=== PATIENT | female | born 1990 ===

== ENCOUNTER 2020-03-30 06:11 | Inpatient (IN) ==
[2020-03-30] MEDS ORDERED: BETADINE SOLN ONE (06:32)
[2020-03-30] MEDS ORDERED: D5 1/2 NS 1000 ML 1,000 ML IV ONE (06:32)
[2020-03-30] MEDS ORDERED: PITOCIN ONE (06:32)
[2020-03-30] MEDS ORDERED: D5LR 1L W PITOCIN 10 UNITS/L 10 UNITS/1,000 ML BAG IV ONE (06:33)
[2020-03-30] MEDS ORDERED: D5 1/2 NS 1L W PITOCIN 20 UNITS/L 20 UNITS/1,000 ML BAG IV ONE (06:33)
[2020-03-30] MEDS: D5 1/2 NS 1000 ML 1,000 ML IV SCH ×2 (06:45→17:00)
[2020-03-30] MEDS ORDERED: D5LR 1L W PITOCIN 10 UNITS/L 10 UNITS/1,000 ML BAG IV PRN (07:00)
[2020-03-30] MEDS ORDERED: REGLAN INJ 10 MG VIAL IVP PRN (07:12)
[2020-03-30] MEDS ORDERED: PITOCIN IVP ONE (07:12)
[2020-03-30] MEDS ORDERED: PHENERGAN INJ 25 MG IM PRN ×2 (07:12→15:20)
[2020-03-30] MEDS ORDERED: STADOL INJ IVP PRN (07:14)
[2020-03-30] MEDS ORDERED: LR 1000 ML IV 1,000 ML IV ONE ×2 (07:44→11:09)
[2020-03-30] MEDS ORDERED: FENTANYL INJ 100 mcg ONE (07:44)
[2020-03-30] MEDS ORDERED: NAROPIN EPIDURAL 0.2% 100 ML ONE (07:45)
[2020-03-30] MEDS ORDERED: EPHEDRINE SULFATE INJ ONE (10:26)
[2020-03-30] MEDS ORDERED: MOTRIN TAB 800 MG PO PRN ×2 (15:20→15:42)
[2020-03-30] MEDS ORDERED: AMBIEN PO PRN (15:42)
[2020-03-30] MEDS ORDERED: DERMOPLAST PAIN RELIEF SPRAY TOP PRN (15:42)
[2020-03-30] MEDS ORDERED: MILK OF MAGNESIA PO PRN (15:42)
[2020-03-30] MEDS ORDERED: D5 1/2 NS 1000 ML 1,000 ML with PITOCIN 20 UNITS IV SCH ×2 (16:00)
[2020-03-31 06:08] LABS: HEMATOCRIT 27.2 % (36.0-47.0); HEMOGLOBIN 8.7 g/dL (12.0-16.0)
--- NOTE | 2020-03-31 08:11 | NOTE.PROOB ---
progress Note OB- Subjective Data Subjective: No complaints, decreased lochia. Tolerating regular diet. No N/V. Ambulating well. No dysuria. Objective Data Result Diagrams: 03/31/20 05:25 Objective Data: CV= RRR no MRG Lungs=CTA Bilaterally Abd=(+) BS, soft, NTND, Fundus firm/NT/ at 3 cm below umbilicus. Ext=no edema, NT, no cords Plan (1) (spontaneous vaginal delivery): Plan: stable and requesting early d/c. considering tubal in 5-6 weeks.
[2020-03-31] MEDS: D5 1/2 NS 1000 ML 1,000 ML IV SCH ×2 (08:39→10:59)
[2020-03-31] MEDS ORDERED: PRENATAL PLUS PO SCH (09:00)
[2020-03-31 12:12] VITALS: BP 103/66
== END 2020-03-31 17:00 | disposition home or self-care (01) | DRG 807 ==
LOC: LD 06:11 → MED/SURG 15:43
PROVIDERS: ADMIT Obstetrics & Gynecology; ATTEND Obstetrics & Gynecology
DX: O99.013 Anemia complicating pregnancy, third trimester; D50.8 Other iron deficiency anemias; Z37.0 Single live birth; O21.0 Mild hyperemesis gravidarum; Z3A.39 39 weeks gestation of pregnancy